=== PATIENT | male | born 1995 | race American Indian/Alaskan Native ===

== ENCOUNTER 2017-09-10 12:22 | Emergency (ER) | payer OTHER ==
[2017-09-10 12:56] VITALS: BP 153/88
--- NOTE | 2017-09-10 13:33 | XRay Report ---
RIGHT KNEE, 3 views: History: Right knee pain. The bony architecture is intact without evidence of fracture or dislocation. No significant soft tissue abnormality is seen. IMPRESSION: Normal right knee.
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
== END 2017-09-10 15:03 | disposition home or self-care (01) ==
LOC: ED 12:22
DX: M25.561 Pain in right knee (principal); J45.909 Unspecified asthma, uncomplicated; V43.52XA Car driver injured in collision with other type car in traffic accident, initial encounter; Y93.89 Activity, other specified; Y92.89 Other specified places as the place of occurrence of the external cause; Y99.8 Other external cause status
CPT/HCPCS: 99283

== ENCOUNTER 2018-12-20 19:02 | Emergency (ER) | payer OTHER ==
--- NOTE | 2018-12-20 20:44 | Emergency Department Report ---
Chief Complaint: Dental/Oral Stated Complaint: RT SIDE TOOTHACHE Time Seen by Provider: 12/20/18 20:42 - HPI History of Present Illness: This is a 23 y.o. male that presents to ER with toothache on the right lower side since this morning. - ROS Review of Systems: toothache - Exam Vital Signs: Vital Signs 12/20/18 20:42 Temperature 98.2 F Pulse Rate 90 Respiratory 18 Rate Blood Pressure 173/99 O2 Sat by Pulse 97 Oximetry MSE screening note: Focused history and physical exam performed. Due to findings the following was ordered: ED Disposition for MSE Condition: Stable
--- NOTE | 2018-12-21 00:10 | Emergency Department Report ---
ED ENT HPI - General Chief complaint: Dental/Oral Stated complaint: RT SIDE TOOTHACHE Time Seen by Provider: 12/20/18 20:42 Source: patient Mode of arrival: Ambulatory Limitations: No Limitations - History of Present Illness Initial comments: Pt presents to the ED with c/o right lower dental pain that began today. He denies any fever, N/V, facial swelling, or any other sx. He states he last saw a dentist approximately two months ago. The patient states he goes to [facility] in [place], [place]. The patient states the tooth that is causing him pain has a chronic crack present. - Related Data Previous Rx's Medication Instructions Recorded Last Taken Type Ibuprofen [Motrin 600 MG tab] 600 mg PO Q8H PRN #30 tablet 09/10/17 Unknown Rx Amoxicillin/K Clav Tab [Augmentin 1 tab PO BID 7 Days #14 tab 12/21/18 Unknown Rx 875 mg] traMADol [Ultram 50 MG tab] 50 mg PO Q6HR PRN #10 tablet 12/21/18 Unknown Rx Allergies Allergy/AdvReac Type Severity Reaction Status Date / Time No Known Allergies Allergy Verified 05/14/15 21:34 ED Dental HPI - General Chief complaint: Dental/Oral Stated complaint: RT SIDE TOOTHACHE Time Seen by Provider: 12/20/18 20:42 Source: patient Mode of arrival: Ambulatory Limitations: No Limitations - Related Data Previous Rx's Medication Instructions Recorded Last Taken Type Ibuprofen [Motrin 600 MG tab] 600 mg PO Q8H PRN #30 tablet 09/10/17 Unknown Rx Amoxicillin/K Clav Tab [Augmentin 1 tab PO BID 7 Days #14 tab 12/21/18 Unknown Rx 875 mg] traMADol [Ultram 50 MG tab] 50 mg PO Q6HR PRN #10 tablet 12/21/18 Unknown Rx Allergies Allergy/AdvReac Type Severity Reaction Status Date / Time No Known Allergies Allergy Verified 05/14/15 21:34 ED Review of Systems ROS: Stated complaint: RT SIDE TOOTHACHE Other details as noted in HPI Comment: All other systems reviewed and negative ED Past Medical Hx - Past Medical History Hx Asthma: Yes - Surgical History Past Surgical History?: No - Social History Smoking Status: Never Smoker Substance Use Type: None - Medications Home Medications: Home Medications Medication Instructions Recorded Confirmed Last Taken Type Ibuprofen [Motrin 600 MG tab] 600 mg PO Q8H PRN #30 tablet 09/10/17 Unknown Rx Amoxicillin/K Clav Tab [Augmentin 1 tab PO BID 7 Days #14 tab 12/21/18 Unknown Rx 875 mg] traMADol [Ultram 50 MG tab] 50 mg PO Q6HR PRN #10 tablet 12/21/18 Unknown Rx ED Physical Exam - General Limitations: No Limitations General appearance: alert, in no apparent distress - Head Head exam: Present: atraumatic, normocephalic - Eye Eye exam: Present: normal appearance - ENT ENT exam: Present: normal orophraynx, mucous membranes moist, other (right lower tooth with chip present does not appear to extend into the pulp, no obvious dental abscess, no facial swelling) ED Course Vital Signs 12/20/18 20:42 Temperature 98.2 F Pulse Rate 90 Respiratory 18 Rate Blood Pressure 173/99 O2 Sat by Pulse 97 Oximetry ED Medical Decision Making - Medical Decision Making Pt presents with right lower dental pain that began today. He denies any fever, facial swelling, N/V, or any other sx. Pt has a prior chip in the tooth that is causing pain. He states he has a dentist at [facility] in [place], [place]. Pt placed on antibiotics and given something for pain. Advised to see dentist [facility]. Return to the ED for any new or worsening symptoms. - Differential Diagnosis Dental caries, dental pain, dental chip, dental abscess Critical care attestation.: If time is entered above; I have spent that time in minutes in the direct care o f this critically ill patient, excluding procedure time. ED Disposition Clinical Impression: Pain due to dental caries Disposition: [id number] TO HOME OR SELFCARE Is pt being admited?: No Does the pt Need Aspirin: No Condition: Stable Instructions: Dental Caries (ED), Toothache (ED) Additional Instructions: Follow up with your dentist at [facility] in [place], [place] tomorrow (12/21/18). Take all medication as prescribed. Return to the emergency room for any new or worsening symptoms. Prescriptions: Amoxicillin/K Clav Tab [Augmentin 875 mg] 1 tab PO BID 7 Days #14 tab traMADol [Ultram 50 MG tab] 50 mg PO Q6HR PRN #10 tablet PRN Reason: Pain [facility] - [facility]-3 Days Forms: Work/School Release Form(ED) Time of Disposition: 00:08 Print Language: HEBREW
== END 2018-12-21 00:20 | disposition home or self-care (01) ==
LOC: ED 19:02
CPT/HCPCS: 99282

== ENCOUNTER 2021-08-21 18:28 | Inpatient (IN) | payer SELFPAY ==
[2021-08-21] MEDS ORDERED: ONDANSETRON 4 MG/2 ML INJ IV ONE (18:44)
[2021-08-21] MEDS ORDERED: SODIUM CHLORIDE 0.9% 1000 ML 1,000 ML IV ONE ×3 (18:44→19:33)
[2021-08-21] MEDS ORDERED: FAMOTIDINE 20 MG/2 ML INJ IV ONE (18:44)
[2021-08-21 19:07] LABS: Basophils # (Auto) 0.1 K/mm3 (0.0-0.1); Basophils % (Auto) 0.5 % (0.0-1.8); Eosinophils % (Auto) 0.1 % (0.0-4.3); Hematocrit 53.2 % (35.5-45.6); Hemoglobin 17.1 gm/dl (11.8-15.2); Lymphocytes # (Auto) 1.7 K/mm3 (1.2-5.4); Lymphocytes % (Auto) 14.4 % (13.4-35.0); Mean Corpuscular HGB Conc 32 % (32-34); Mean Corpuscular Volume 88 fl (84-94); Monocytes # (Auto) 0.7 K/mm3 (0.0-0.8); Monocytes % (Auto) 5.7 % (0.0-7.3); Platelet Count 518 K/mm3 (140-440); Red Blood Count 6.03 M/mm3 (3.65-5.03); Red Cell Distribution Width 12.8 % (13.2-15.2)
[2021-08-21 19:07] LABS: Bilirubin,Urine NEG (Negative); Blood,Urine SM (Negative); Color,Urine Straw (Yellow); Mucus,Urine FEW /HPF; Urobilinogen,Urine < 2.0 mg/dL (<2.0)
[2021-08-21 19:24] LABS: Alanine Aminotransferase 30 units/L (7-56); Albumin 4.9 g/dL (3.9-5); BUN/Creatinine Ratio 18; Blood Urea Nitrogen 23 mg/dL (9-20); Calcium 9.7 mg/dL (8.4-10.2); Hemolysis Index 23
[2021-08-21] MEDS ORDERED: DEXTROSE 50% IN WATER (25GM) 50 ML SYRINGE IV PRN ×2 (19:33→21:39)
--- NOTE | 2021-08-21 19:56 | Emergency Department Report ---
ED Abdominal Pain HPI - General Chief Complaint: Hyperglycemia Stated Complaint: HYPERGLYCEMIA Time Seen by Provider: 08/21/21 18:40 Source: patient, EMS Mode of arrival: Stretcher Limitations: No Limitations - History of Present Illness Initial Comments: Patient is a 25-year-old F Burmese male with no significant past medical history who is presenting with nausea vomiting hyperglycemia. Patient states he is has some nausea vomiting for the past 2 to 3 days. Patient states he has not felt well over the last week. Patient is just finished a full course of antibiotics for a left-sided tooth abscess. In the last week patient has had increased thirst urinary frequency but denies dysuria. Some crampy abdominal discomfort started couple days ago and again the patient is vomiting. No diarrhea cough cold congestion fevers or chills. Patient had Accu-Chek done prior to arrival which read high - Related Data Previous Rx's Medication Instructions Recorded Last Taken Type Ibuprofen [Motrin 600 MG tab] 600 mg PO Q8H PRN #30 tablet 09/10/17 Unknown Rx Amoxicillin/K Clav Tab [Augmentin 1 tab PO BID 7 Days #14 tab 12/21/18 Unknown Rx 875 mg] traMADoL [Ultram 50 MG tab] 50 mg PO Q6HR PRN #10 tablet 12/21/18 Unknown Rx Allergies Allergy/AdvReac Type Severity Reaction Status Date / Time avocado Allergy Hives Verified 08/21/21 18:42 ED Review of Systems ROS: Stated complaint: HYPERGLYCEMIA Other details as noted in HPI Comment: All other systems reviewed and negative ED Past Medical Hx - Past Medical History Previous Medical History?: No Hx Asthma: Yes - Surgical History Past Surgical History?: No - Family History Family history: diabetes - Social History Smoking Status: Unknown if ever smoked - Medications Home Medications: Home Medications Medication Instructions Recorded Confirmed Last Taken Type Ibuprofen [Motrin 600 MG tab] 600 mg PO Q8H PRN #30 tablet 09/10/17 Unknown Rx Amoxicillin/K Clav Tab [Augmentin 1 tab PO BID 7 Days #14 tab 12/21/18 Unknown Rx 875 mg] traMADoL [Ultram 50 MG tab] 50 mg PO Q6HR PRN #10 tablet 12/21/18 Unknown Rx ED Physical Exam - General Limitations: No Limitations General appearance: alert, in no apparent distress, other (dry mouth) - Head Head exam: Present: atraumatic, normocephalic - Eye Eye exam: Present: normal appearance - ENT ENT exam: Present: mucous membranes dry - Neck Neck exam: Present: normal inspection - Respiratory Respiratory exam: Present: normal lung sounds bilaterally. Absent: respiratory distress, wheezes, rales, rhonchi - Cardiovascular Cardiovascular Exam: Present: normal rhythm, tachycardia, normal heart sounds. Absent: systolic murmur, diastolic murmur, rubs, gallop - GI/Abdominal GI/Abdominal exam: Present: soft, normal bowel sounds. Absent: distended, tende rness, guarding, rebound - Rectal Rectal exam: Present: deferred - Extremities Exam Extremities exam: Present: normal inspection - Back Exam Back exam: Present: normal inspection - Neurological Exam Neurological exam: Present: alert, oriented X3 - Psychiatric Psychiatric exam: Present: normal affect, normal mood - Skin Skin exam: Present: warm, dry, intact, normal color. Absent: rash ED Course Vital Signs 08/21/21 08/21/21 08/21/21 18:41 19:15 19:25 Temperature 98.0 F 98.0 F Pulse Rate 112 H 126 H Respiratory 18 15 Rate Blood Pressure Blood Pressure 150/98 [Right] O2 Sat by Pulse 94 Oximetry 08/21/21 08/21/21 19:27 19:30 Temperature Pulse Rate 105 H Respiratory 18 Rate Blood Pressure 137/88 Blood Pressure [Right] O2 Sat by Pulse 100 96 Oximetry ED Medical Decision Making - Lab Data Result diagrams: 08/21/21 18:51 08/21/21 18:51 Lab Results 08/21/21 08/21/21 08/21/21 Range/Units 18:37 18:51 18:51 WBC 11.6 H (4.5-11.0) K/mm3 RBC 6.03 H (3.65-5.03) M/mm3 Hgb 17.1 H (11.8-15.2) gm/dl Hct 53.2 H (35.5-45.6) % MCV 88 (84-94) fl MCH 28 (28-32) pg MCHC 32 (32-34) % RDW 12.8 L (13.2-15.2) % Plt Count 518 H (140-440) K/mm3 Lymph % (Auto) 14.4 (13.4-35.0) % [place] % (Auto) 5.7 (0.0-7.3) % Eos % (Auto) 0.1 (0.0-4.3) % Baso % (Auto) 0.5 (0.0-1.8) % Lymph # (Auto) 1.7 (1.2-5.4) K/mm3 [place] # (Auto) 0.7 (0.0-0.8) K/mm3 Eos # (Auto) 0.0 (0.0-0.4) K/mm3 Baso # (Auto) 0.1 (0.0-0.1) K/mm3 Seg Neutrophils % 79.3 H (40.0-70.0) % Seg Neutrophils # 9.2 H (1.8-7.7) K/mm3 VBG pH (7.320-7.420) Sodium 127 L (137-145) mmol/L Potassium 4.7 (3.6-5.0) mmol/L Chloride 85.4 L (98-107) mmol/L Carbon Dioxide 10 L (22-30) mmol/L Anion Gap 36 mmol/L BUN 23 H (9-20) mg/dL Creatinine 1.3 (0.8-1.3) mg/dL Estimated GFR > 60 ml/min BUN/Creatinine Ratio 18 % Glucose 745 H* (75-100) mg/dL POC Glucose > 600 H (70-105) mg/dL Calcium 9.7 (8.4-10.2) mg/dL Phosphorus (2.5-4.5) mg/dL Magnesium (1.7-2.3) mg/dL Total Bilirubin 0.60 (0.1-1.2) mg/dL AST 14 (5-40) units/L ALT 30 (7-56) units/L Alkaline Phosphatase 164 H (35-129) units/L Total Protein 9.6 H (6.3-8.2) g/dL Albumin 4.9 (3.9-5) g/dL Albumin/Globulin Ratio 1.0 % Lipase 28 (13-60) units/L Urine Color (Yellow) Urine Turbidity (Clear) Urine pH (5.0-7.0) Ur Specific [place] (1.003-1.030) Urine Protein (Negative) mg/dL Urine Glucose (UA) (Negative) mg/dL Urine Ketones (Negative) mg/dL Urine Blood (Negative) Urine Nitrite (Negative) Urine Bilirubin (Negative) Urine Urobilinogen (<2.0) mg/dL Ur Leukocyte Esterase (Negative) Urine WBC (Auto) (0.0-6.0) /HPF Urine RBC (Auto) (0.0-6.0) /HPF Urine Mucus /HPF 08/21/21 08/21/21 08/21/21 Range/Units 18:51 18:51 Unknown WBC (4.5-11.0) K/mm3 RBC (3.65-5.03) M/mm3 Hgb (11.8-15.2) gm/dl Hct (35.5-45.6) % MCV (84-94) fl MCH (28-32) pg MCHC (32-34) % RDW (13.2-15.2) % Plt Count (140-440) K/mm3 Lymph % (Auto) (13.4-35.0) % [place] % (Auto) (0.0-7.3) % Eos % (Auto) (0.0-4.3) % Baso % (Auto) (0.0-1.8) % Lymph # (Auto) (1.2-5.4) K/mm3 [place] # (Auto) (0.0-0.8) K/mm3 Eos # (Auto) (0.0-0.4) K/mm3 Baso # (Auto) (0.0-0.1) K/mm3 Seg Neutrophils % (40.0-70.0) % Seg Neutrophils # (1.8-7.7) K/mm3 VBG pH 7.272 L (7.320-7.420) Sodium (137-145) mmol/L Potassium (3.6-5.0) mmol/L Chloride (98-107) mmol/L Carbon Dioxide (22-30) mmol/L Anion Gap mmol/L BUN (9-20) mg/dL Creatinine (0.8-1.3) mg/dL Estimated GFR ml/min BUN/Creatinine Ratio % Glucose (75-100) mg/dL POC Glucose (70-105) mg/dL Calcium (8.4-10.2) mg/dL Phosphorus 6.90 H (2.5-4.5) mg/dL Magnesium 2.70 H (1.7-2.3) mg/dL Total Bilirubin (0.1-1.2) mg/dL AST (5-40) units/L ALT (7-56) units/L Alkaline Phosphatase (35-129) units/L Total Protein (6.3-8.2) g/dL Albumin (3.9-5) g/dL Albumin/Globulin Ratio % Lipase (13-60) units/L Urine Color Straw (Yellow) Urine Turbidity Clear (Clear) Urine pH 5.0 (5.0-7.0) Ur Specific [place] 1.029 (1.003-1.030) Urine Protein 100 mg/dl (Negative) mg/dL Urine Glucose (UA) >=500 (Negative) mg/dL Urine Ketones 20 (Negative) mg/dL Urine Blood Sm (Negative) Urine Nitrite Neg (Negative) Urine Bilirubin Neg (Negative) Urine Urobilinogen < 2.0 (<2.0) mg/dL Ur Leukocyte Esterase Neg (Negative) Urine WBC (Auto) 1.0 (0.0-6.0) /HPF Urine RBC (Auto) 1.0 (0.0-6.0) /HPF Urine Mucus Few /HPF - Medical Decision Making Patient is a 25-year-old F Burmese male who is presenting with hyperglycemia and nausea vomiting. Patient is acidotic. Blood glucose greater than 700. Patient to be admitted to the ICU. Started on insulin drip. 3 L of fluid have been ordered will be initiated in the emergency department. Critical care attestation.: If time is entered above; I have spent that time in minutes in the direct care of this critically ill patient, excluding procedure time. ED Disposition Clinical Impression: Diabetic ketoacidosis, Diabetes mellitus, new onset, Dehydration Disposition: ADMITTED INPATIENT Is pt being admited?: Yes Does the pt Need Aspirin: No Condition: Stable Instructions: Diabetic Ketoacidosis (ED), Diabetes Mellitus Type 2 in Adults (ED) Time of Disposition: 19:56
[2021-08-21] MEDS ORDERED: D5W/0.45% NACL/KCL 20 MEQ 20 MEQ/1,000 ML BAG IV SCH (20:00)
[2021-08-21] MEDS: INSULIN REGULAR, HUMAN 100 UNITS in SODIUM CHLORIDE 0.9% 99 ML IV SCH (20:20)
[2021-08-21] MEDS ORDERED: ACETAMINOPHEN 325 MG TAB PO PRN (21:39)
[2021-08-21] MEDS ORDERED: HYDROmorphone 1 MG/1 ML INJ IV PRN (21:39)
[2021-08-21] MEDS ORDERED: MORPHINE 2 MG/1 ML INJ IV PRN (21:39)
[2021-08-21] MEDS ORDERED: ALBUTEROL 2.5 MG/3 ML NEBU IH PRN (21:39)
[2021-08-21] MEDS ORDERED: ONDANSETRON 4 MG/2 ML INJ IV PRN (21:39)
[2021-08-21] MEDS ORDERED: IBUPROFEN 600 MG TAB PO PRN (21:42)
--- NOTE | 2021-08-21 21:48 | History and Physical Report ---
History of Present Illness Date of examination: 08/21/21 Date of admission: 08/21/21 Chief complaint: Hyperglycemia History of present illness: 25-year-old F Haitian male with no significant past medical history who is presenting with nausea vomiting hyperglycemia. Patient states he is has some nausea vomiting for the past 2 to 3 days. Patient states he has not felt well over the last week. Patient is just finished a full course of antibiotics for a left-sided tooth abscess. In the last week patient has had increased thirst urinary frequency but denies dysuria. Some crampy abdominal discomfort started couple days ago and again the patient is vomiting. No diarrhea cough cold congestion fevers or chills. Patient had Accu-Chek done prior to arrival which read high In the emergency room patient is found to have DKA. Patient is acidotic. Blood glucose greater than 700. Patient to be admitted to the ICU. Started on insulin drip. 3 L of fluid have been ordered will be initiated in the emergency department. Med rec is done Past History Past Medical History: diabetes Medications and Allergies Allergies Allergy/AdvReac Type Severity Reaction Status Date / Time avocado Allergy Hives Verified 08/21/21 18:42 Home Medications Medication Instructions Recorded Confirmed Last Taken Type Ibuprofen [Motrin 600 MG tab] 600 mg PO Q8H PRN #30 tablet 09/10/17 Unknown Rx Amoxicillin/K Clav Tab [Augmentin 1 tab PO BID 7 Days #14 tab 12/21/18 Unknown Rx 875 mg] traMADoL [Ultram 50 MG tab] 50 mg PO Q6HR PRN #10 tablet 12/21/18 Unknown Rx Active Meds: Active Medications Acetaminophen (Acetaminophen 325 Mg Tab) 650 mg PO Q4H PRN PRN Reason: Pain MILD(1-3)/Fever >100.5/BILLINGS Albuterol (Albuterol 2.5 Mg/3 Ml Nebu) 2.5 mg IH Q4HRT PRN PRN Reason: Shortness Of Breath Albuterol/Ipratropium (Ipratropium/Albuterol Sulfate 3 Ml Ampul.Neb) 1 ampul IH Q6HRT GIULIANA Amoxicillin/Clavulanate Potassium (Amoxicillin/K Clav 875/125mg Tab) 1 each PO BID GIULIANA; Protocol Dextrose (Dextrose 50% In Water (25gm) 50 Ml Syringe) 0 ml IV Q30MIN PRN; Protocol PRN Reason: Hypoglycemia Dextrose (Dextrose 50% In Water (25gm) 50 Ml Syringe) 0 ml IV Q30MIN PRN; Protocol PRN Reason: Hypoglycemia Famotidine (Famotidine 20 Mg/2 Ml Inj) 20 mg IV BID GIULIANA Hydromorphone HCl (Hydromorphone 1 Mg/1 Ml Inj) 0.5 mg IV Q3H PRN PRN Reason: Pain , Severe (7-10) Insulin Human Regular 100 (units/ Sodium Chloride) 100 mls @ 1 mls/hr IV TITR GIULIANA; Protocol Last Admin: 08/21/21 20:20 Dose: 8 units/hr, 8 mls/hr Documented by: Potassium Chloride/Dextrose/Sod Cl (D5w/0.45% Nacl/Kcl 20 Meq) 20 meq in 1,000 mls @ 125 mls/hr IV DIRECT GIULIANA Insulin Human Regular 100 (units/ Sodium Chloride) 100 mls @ 1 mls/hr IV TITR GIULIANA; Protocol Sodium Chloride (Nacl 0.45% 1000 Ml) 1,000 mls @ 150 mls/hr IV DIRECT GIULIANA Ibuprofen (Ibuprofen 600 Mg Tab) 600 mg PO Q8H PRN PRN Reason: PAIN Morphine Sulfate (Morphine 2 Mg/1 Ml Inj) 2 mg IV Q4H PRN PRN Reason: Pain, Moderate (4-6) Ondansetron HCl (Ondansetron 4 Mg/2 Ml Inj) 4 mg IV Q8H PRN PRN Reason: Nausea And Vomiting Sodium Chloride (Sodium Chloride 0.9% 10 Ml Flush Syringe) 10 ml IV BID GIULIANA Sodium Chloride (Sodium Chloride 0.9% 10 Ml Flush Syringe) 10 ml IV PRN PRN PRN Reason: LINE FLUSH Review of Systems All systems: negative Gastrointestinal: abdominal pain, nausea, vomiting Endocrine: polyuria Exam - Constitutional Vitals: Temp Pulse Resp BP Pulse Ox 98.0 F 105 H 18 137/88 96 08/21/21 19:25 08/21/21 19:30 08/21/21 19:30 08/21/21 19:30 08/21/21 19:30 General appearance: Present: no acute distress, well-nourished - EENT Eyes: Present: PERRL ENT: hearing intact, clear oral mucosa - Neck Neck: Present: supple, normal ROM - Respiratory Respiratory effort: normal Respiratory: bilateral: CTA - Cardiovascular Heart Sounds: Present: S1 & S2. Absent: rub, click - Extremities Extremities: pulses symmetrical, No edema Peripheral Pulses: within normal limits - Abdominal General gastrointestinal: Present: soft, non-tender, non-distended, normal bowel sounds Male genitourinary: Present: normal - Integumentary Integumentary: Present: clear, warm, dry - Musculoskeletal Musculoskeletal: gait normal, strength equal bilaterally - Psychiatric Psychiatric: appropriate mood/affect, intact judgment & insight - Neurologic Neurologic: CNII-XII intact, moves all extremities Results - Labs CBC & Chem 7: 08/21/21 18:51 08/21/21 18:51 Labs: Laboratory Last Values WBC 11.6 K/mm3 (4.5-11.0) H 08/21/21 18:51 RBC 6.03 M/mm3 (3.65-5.03) H 08/21/21 18:51 Hgb 17.1 gm/dl (11.8-15.2) H 08/21/21 18:51 Hct 53.2 % (35.5-45.6) H 08/21/21 18:51 MCV 88 fl (84-94) 08/21/21 18:51 MCH 28 pg (28-32) 08/21/21 18:51 MCHC 32 % (32-34) 08/21/21 18:51 RDW 12.8 % (13.2-15.2) L 08/21/21 18:51 Plt Count 518 K/mm3 (140-440) H 08/21/21 18:51 Lymph % (Auto) 14.4 % (13.4-35.0) 08/21/21 18:51 [place] % (Auto) 5.7 % (0.0-7.3) 08/21/21 18:51 Eos % (Auto) 0.1 % (0.0-4.3) 08/21/21 18:51 Baso % (Auto) 0.5 % (0.0-1.8) 08/21/21 18:51 Lymph # (Auto) 1.7 K/mm3 (1.2-5.4) 08/21/21 18:51 [place] # (Auto) 0.7 K/mm3 (0.0-0.8) 08/21/21 18:51 Eos # (Auto) 0.0 K/mm3 (0.0-0.4) 08/21/21 18:51 Baso # (Auto) 0.1 K/mm3 (0.0-0.1) 08/21/21 18:51 Seg Neutrophils % 79.3 % (40.0-70.0) H 08/21/21 18:51 Seg Neutrophils # 9.2 K/mm3 (1.8-7.7) H 08/21/21 18:51 VBG pH 7.272 (7.320-7.420) L 08/21/21 18:51 Sodium 127 mmol/L (137-145) L 08/21/21 18:51 Potassium 4.7 mmol/L (3.6-5.0) 08/21/21 18:51 Chloride 85.4 mmol/L (98-107) L 08/21/21 18:51 Carbon Dioxide 10 mmol/L (22-30) L 08/21/21 18:51 Anion Gap 36 mmol/L 08/21/21 18:51 BUN 23 mg/dL (9-20) H 08/21/21 18:51 Creatinine 1.3 mg/dL (0.8-1.3) 08/21/21 18:51 Estimated GFR > 60 ml/min 08/21/21 18:51 BUN/Creatinine Ratio 18 % 08/21/21 18:51 Glucose 745 mg/dL (75-100) H* 08/21/21 18:51 POC Glucose > 600 mg/dL (70-105) H 08/21/21 18:37 Calcium 9.7 mg/dL (8.4-10.2) 08/21/21 18:51 Phosphorus 6.90 mg/dL (2.5-4.5) H 08/21/21 18:51 Magnesium 2.70 mg/dL (1.7-2.3) H 08/21/21 18:51 Total Bilirubin 0.60 mg/dL (0.1-1.2) 08/21/21 18:51 AST 14 units/L (5-40) 08/21/21 18:51 ALT 30 units/L (7-56) 08/21/21 18:51 Alkaline Phosphatase 164 units/L (35-129) H 08/21/21 18:51 Total Protein 9.6 g/dL (6.3-8.2) H 08/21/21 18:51 Albumin 4.9 g/dL (3.9-5) 08/21/21 18:51 Albumin/Globulin Ratio 1.0 % 08/21/21 18:51 Lipase 28 units/L (13-60) 08/21/21 18:51 Urine Color Straw (Yellow) 08/21/21 Unknown Urine Turbidity Clear (Clear) 08/21/21 Unknown Urine pH 5.0 (5.0-7.0) 08/21/21 Unknown Ur Specific [place] 1.029 (1.003-1.030) 08/21/21 Unknown Urine Protein 100 mg/dl mg/dL (Negative) 08/21/21 Unknown Urine Glucose (UA) >=500 mg/dL (Negative) 08/21/21 Unknown Urine Ketones 20 mg/dL (Negative) 08/21/21 Unknown Urine Blood Sm (Negative) 08/21/21 Unknown Urine Nitrite Neg (Negative) 08/21/21 Unknown Urine Bilirubin Neg (Negative) 08/21/21 Unknown Urine Urobilinogen < 2.0 mg/dL (<2.0) 08/21/21 Unknown Ur Leukocyte Esterase Neg (Negative) 08/21/21 Unknown Urine WBC (Auto) 1.0 /HPF (0.0-6.0) 08/21/21 Unknown Urine RBC (Auto) 1.0 /HPF (0.0-6.0) 08/21/21 Unknown Urine Mucus Few /HPF 08/21/21 Unknown Assessment and Plan VTE prophylaxis?: Mechanical Plan of care discussed with patient/family: Yes - Patient Problems (1) Diabetic ketoacidosis Current Visit: Yes Status: Acute Plan to address problem: Admit the patient to the ICU. NPO. half-normal saline at the rate of 150 cc/h. Insulin drip as per protocol. Serial BMP. Recheck CBC BMP in the morning . Diabetic education (2) Dehydration Current Visit: Yes Status: Acute Plan to address problem: Half-normal saline at the rate of 150 cc/h. We rehydrate the patient's slowly. Recheck BMP in the morning (3) Diabetes mellitus, new onset Current Visit: Yes Status: Acute Plan to address problem: We will put the patient on insulin drip as per DKA protocol we will do the serial BMP. Diabetic education (4) DVT prophylaxis Current Visit: Yes Status: Acute Plan to address problem: SCD for DVT prophylaxis. Pepcid 20 mg IV every 12 hours for GI prophylaxis. Patient is a full code
[2021-08-21] MEDS ORDERED: INSULIN REGULAR, HUMAN 100 UNITS in SODIUM CHLORIDE 0.9% 99 ML IV SCH (22:00)
[2021-08-21] MEDS ORDERED: SODIUM CHLORIDE 0.45% 1000 ML 1,000 ML IV SCH (22:00)
[2021-08-21 22:37] LABS: BUN/Creatinine Ratio 20; Blood Urea Nitrogen 24 mg/dL (9-20); Calcium 9.1 mg/dL (8.4-10.2); Hemolysis Index 22
[2021-08-21] MEDS: AMOXICILLIN/K CLAV 875/125MG TAB PO SCH (22:41)
[2021-08-21] MEDS: FAMOTIDINE 20 MG/2 ML INJ IV SCH (22:41)
[2021-08-22 00:40] LABS: BUN/Creatinine Ratio 19; Blood Urea Nitrogen 21 mg/dL (9-20); Calcium 9.2 mg/dL (8.4-10.2); Hemolysis Index 14
[2021-08-22] MEDS ORDERED: SODIUM CHLORIDE 0.45% 1000 ML IV SOLN IV SCH (01:00)
[2021-08-22] MEDS: INSULIN REGULAR, HUMAN 100 UNITS in SODIUM CHLORIDE 0.9% 99 ML IV SCH ×2 (02:58→15:17)
[2021-08-22 05:13] LABS: Basophils # (Auto) 0.1 K/mm3 (0.0-0.1); Basophils % (Auto) 0.7 % (0.0-1.8); Eosinophils % (Auto) 0.2 % (0.0-4.3); Hematocrit 49.1 % (35.5-45.6); Hemoglobin 16.4 gm/dl (11.8-15.2); Lymphocytes # (Auto) 2.4 K/mm3 (1.2-5.4); Lymphocytes % (Auto) 22.3 % (13.4-35.0); Mean Corpuscular HGB Conc 33 % (32-34); Mean Corpuscular Volume 86 fl (84-94); Monocytes # (Auto) 1.1 K/mm3 (0.0-0.8); Monocytes % (Auto) 10.7 % (0.0-7.3); Platelet Count 435 K/mm3 (140-440); Red Blood Count 5.72 M/mm3 (3.65-5.03); Red Cell Distribution Width 12.9 % (13.2-15.2)
[2021-08-22 05:30] LABS: BUN/Creatinine Ratio 20; Blood Urea Nitrogen 18 mg/dL (9-20); Calcium 8.9 mg/dL (8.4-10.2); Hemolysis Index 15
[2021-08-22] MEDS ORDERED: LACTATED RINGERS 1,000 ML IV ONE (08:00)
[2021-08-22] MEDS: IPRATROPIUM/ALBUTEROL SULFATE 3 ML AMPUL.NEB IH SCH ×2 (08:31)
[2021-08-22] MEDS: AMOXICILLIN/K CLAV 875/125MG TAB PO SCH ×2 (10:26→10:34)
[2021-08-22] MEDS: FAMOTIDINE 20 MG/2 ML INJ IV SCH (10:27)
[2021-08-22] MEDS ORDERED: hydrALAZINE 20 MG/1 ML INJ IV PRN (12:30)
--- NOTE | 2021-08-22 14:55 | Progress Note ---
<DOUG MCINTOSH - Last Filed: 08/22/21 16:00> Assessment and Plan Assessment and plan: This is a 25-year-old male admitted with DKA Neuro: NAD -Avoid delirium -Maintain sleep-wake cycle -Mutation as needed CV: ? HTN -Patient is having elevated blood pressure readings but denies history of hypertension -As needed hydralazine -Blood Pressure monitoring per protocol Respiratory: NAD -Supplemental oxygen as needed -SPO2 monitoring-pulmonary hygiene GI: MO -Encouraged lifestyle and dietary modifications upon discharge -PPI -24 hours -286 ml -BR: Senna : Pseudohyponatremia, metabolic acidosis (resolved), hypomagnesemia, hypophosphatemia -Monitor intake and output -Voiding into urinal -Trend BMP -Intervene as needed Endo: DKA, h/o DM -Presented with polydipsia, polyuria, nausea, vomiting and hypoglycemia -Admit labs were consistent with DKA -S/p DKA protocol, insulin drip -Transition to SSI -Transition to long-acting insulin, titrate as needed -Hemoglobin A1c pending -Nutrition consult for diabetic education -We will need glucometer and testing supplies upon discharge -We will need to follow-up with primary care physician upon discharge ID: COVID-19 PUI, leukocytosis (resolved), h/o tooth abscess -Patient states that he is not vaccinated for COVID-19 -COVID-19 PCR negative -Patient completed antibiotic course for tooth abscess 2 weeks prior to admit -Presented with leukocytosis which may be reactive very -Monitor fever and WBC curve Heme: Hemoconcentration -Trend CBC -Hemoconcentration likely related to dehydration -Transfuse for hemoglobin less than 7 -Lovenox subcu -SCDs to bilateral lower extremity while in bed The high probability of a clinically significant, sudden or life threatening deterioration of the [endo] system(s) required my full and direct attention, intervention and personal management. The aggregate critical care time was [60] minutes. This time is in addition to time spent performing reported procedures but includes the following: [x] Data Review and interpretation [x] Patient assessment and monitoring of vital signs [x] Documentation [x] Medication orders and management Disposition Plan: possible transfer to floor Total Time Spent with Patient (Minutes): 60 History Interval history: This is a 25-year-old male with no medical history who presents to the emergency department with nausea, vomiting, polydipsia, and polyuria for the past 2-3 days and abdominal discomfort and recently finished a course of antibiotics for left-sided tooth abscess. Patient stated that he had done blood glucose level prior to presentation which read high. Work-up in the emergency department revealed hyperglycemia and high anion gap metabolic acidosis. Patient was admit erin to the hospitalist service with consults to [facility] on DKA pathway. 08/22: COVID-19 PCR sent today, antibiotics discontinued, patient remains on insulin drip and awaiting PM BMP. Hospitalist Physical - Constitutional Vitals: Temp Pulse Resp BP Pulse Ox 98.9 F 95 H 15 153/93 95 08/22/21 12:00 08/22/21 14:11 08/22/21 14:11 08/22/21 14:11 08/22/21 14:11 General appearance: Present: no acute distress, well-nourished - EENT Eyes: Present: PERRL, EOM intact ENT: hearing intact, clear oral mucosa, dentition normal - Neck Neck: Present: supple, normal ROM - Respiratory Respiratory effort: normal Respiratory: bilateral: diminished - Cardiovascular Rhythm: regular Heart Sounds: Present: S1 & S2. Absent: systolic murmur, diastolic murmur - Extremities Extremities: no ischemia, pulses intact, pulses symmetrical, No edema, normal temperature, normal color, Full ROM Peripheral Pulses: within normal limits - Abdominal General gastrointestinal: soft, non-tender, non-distended, normal bowel sounds - Integumentary Integumentary: Present: warm, dry - Psychiatric Psychiatric: cooperative - Neurologic Neurologic: CNII-XII intact, no focal deficits, moves all extremities - Allied Health Allied health notes reviewed: nursing, RT, social work Results - Labs CBC & Chem 7: 08/22/21 04:39 08/22/21 14:19 Labs: Laboratory Last Values WBC 10.7 K/mm3 (4.5-11.0) 08/22/21 04:39 RBC 5.72 M/mm3 (3.65-5.03) H 08/22/21 04:39 Hgb 16.4 gm/dl (11.8-15.2) H 08/22/21 04:39 Hct 49.1 % (35.5-45.6) H 08/22/21 04:39 MCV 86 fl (84-94) 08/22/21 04:39 MCH 29 pg (28-32) 08/22/21 04:39 MCHC 33 % (32-34) 08/22/21 04:39 RDW 12.9 % (13.2-15.2) L 08/22/21 04:39 Plt Count 435 K/mm3 (140-440) 08/22/21 04:39 Lymph % (Auto) 22.3 % (13.4-35.0) 08/22/21 04:39 [place] % (Auto) 10.7 % (0.0-7.3) H 08/22/21 04:39 Eos % (Auto) 0.2 % (0.0-4.3) 08/22/21 04:39 Baso % (Auto) 0.7 % (0.0-1.8) 08/22/21 04:39 Lymph # (Auto) 2.4 K/mm3 (1.2-5.4) 08/22/21 04:39 [place] # (Auto) 1.1 K/mm3 (0.0-0.8) H 08/22/21 04:39 Eos # (Auto) 0.0 K/mm3 (0.0-0.4) 08/22/21 04:39 Baso # (Auto) 0.1 K/mm3 (0.0-0.1) 08/22/21 04:39 Seg Neutrophils % 66.1 % (40.0-70.0) 08/22/21 04:39 Seg Neutrophils # 7.1 K/mm3 (1.8-7.7) 08/22/21 04:39 VBG pH 7.272 (7.320-7.420) L 08/21/21 18:51 Sodium 140 mmol/L (137-145) 08/22/21 04:39 Potassium 4.5 mmol/L (3.6-5.0) 08/22/21 04:39 Chloride 104.0 mmol/L (98-107) 08/22/21 04:39 Carbon Dioxide 13 mmol/L (22-30) L 08/22/21 04:39 Anion Gap 28 mmol/L 08/22/21 04:39 BUN 18 mg/dL (9-20) 08/22/21 04:39 Creatinine 0.9 mg/dL (0.8-1.3) 08/22/21 04:39 Estimated GFR > 60 ml/min 08/22/21 04:39 BUN/Creatinine Ratio 20 % 08/22/21 04:39 Glucose 315 mg/dL (75-100) H 08/22/21 04:39 POC Glucose 235 mg/dL (70-105) H 08/22/21 14:08 Calcium 8.9 mg/dL (8.4-10.2) 08/22/21 04:39 Phosphorus 4.80 mg/dL (2.5-4.5) H D 08/21/21 21:50 Magnesium 2.70 mg/dL (1.7-2.3) H 08/21/21 21:50 Total Bilirubin 0.60 mg/dL (0.1-1.2) 08/21/21 18:51 AST 14 units/L (5-40) 08/21/21 18:51 ALT 30 units/L (7-56) 08/21/21 18:51 Alkaline Phosphatase 164 units/L (35-129) H 08/21/21 18:51 Total Protein 9.6 g/dL (6.3-8.2) H 08/21/21 18:51 Albumin 4.9 g/dL (3.9-5) 08/21/21 18:51 Albumin/Globulin Ratio 1.0 % 08/21/21 18:51 Lipase 28 units/L (13-60) 08/21/21 18:51 Urine Color Straw (Yellow) 08/21/21 Unknown Urine Turbidity Clear (Clear) 08/21/21 Unknown Urine pH 5.0 (5.0-7.0) 08/21/21 Unknown Ur Specific [place] 1.029 (1.003-1.030) 08/21/21 Unknown Urine Protein 100 mg/dl mg/dL (Negative) 08/21/21 Unknown Urine Glucose (UA) >=500 mg/dL (Negative) 08/21/21 Unknown Urine Ketones 20 mg/dL (Negative) 08/21/21 Unknown Urine Blood Sm (Negative) 08/21/21 Unknown Urine Nitrite Neg (Negative) 08/21/21 Unknown Urine Bilirubin Neg (Negative) 08/21/21 Unknown Urine Urobilinogen < 2.0 mg/dL (<2.0) 08/21/21 Unknown Ur Leukocyte Esterase Neg (Negative) 08/21/21 Unknown Urine WBC (Auto) 1.0 /HPF (0.0-6.0) 08/21/21 Unknown Urine RBC (Auto) 1.0 /HPF (0.0-6.0) 08/21/21 Unknown Urine Mucus Few /HPF 08/21/21 Unknown Tao/IV: Voiding Method Urinal Active Medications - Current Medications Current Medications: Generic Name Dose Route Start Last Admin Trade Name Freq PRN Reason Stop Dose Admin Acetaminophen 650 mg 08/21/21 21:39 Acetaminophen 325 Mg Tab PO Q4H PRN Pain MILD(1-3)/Fever >100.5/BILLINGS Albuterol 2.5 mg 08/21/21 21:39 Albuterol 2.5 Mg/3 Ml Nebu IH Q4HRT PRN Shortness Of Breath Dextrose 0 ml 08/21/21 21:39 Dextrose 50% In Water (25gm) 50 Ml Syringe IV Q30MIN PRN Hypoglycemia Protocol Famotidine 20 mg 08/21/21 22:00 08/22/21 10:27 Famotidine 20 Mg/2 Ml Inj IV 20 mg BID GIULIANA Administration Hydralazine HCl 10 mg 08/22/21 12:30 Hydralazine 20 Mg/1 Ml Inj IV Q4H PRN Hypertension Hydromorphone HCl 0.5 mg 08/21/21 21:39 Hydromorphone 1 Mg/1 Ml Inj IV Q3H PRN Pain , Severe (7-10) Insulin Human Regular 100 100 mls @ 1 mls/hr 08/21/21 20:00 08/22/21 14:12 units/ Sodium Chloride IV Infused TITR GIULIANA Titration Protocol 1 UNITS/HR Potassium Chloride/Dextrose/Sod Cl 20 meq in 1,000 mls @ 125 mls/hr 08/21/21 20:00 08/22/21 12:13 D5w/0.45% Nacl/Kcl 20 Meq IV 125 mls/hr DIRECT GIULIANA Infusion Sodium Chloride 1,000 mls @ 125 mls/hr 08/21/21 22:00 08/22/21 12:13 Nacl 0.45% 1000 Ml IV Infused DIRECT GIULIANA Infusion Ibuprofen 600 mg 08/21/21 21:42 Ibuprofen 600 Mg Tab PO Q8H PRN Pain, Mild (1-3) Morphine Sulfate 2 mg 08/21/21 21:39 Morphine 2 Mg/1 Ml Inj IV Q4H PRN Pain, Moderate (4-6) Ondansetron HCl 4 mg 08/21/21 21:39 Ondansetron 4 Mg/2 Ml Inj IV Q8H PRN Nausea And Vomiting Sodium Chloride 10 ml 08/21/21 22:00 08/22/21 10:27 Sodium Chloride 0.9% 10 Ml Flush Syringe IV 10 ml BID GIULIANA Administration Sodium Chloride 10 ml 08/21/21 21:39 Sodium Chloride 0.9% 10 Ml Flush Syringe IV PRN PRN LINE FLUSH <KIRSTEN JIMÉNEZ - Last Filed: 08/23/21 07:20> Assessment and Plan Assessment and plan: I saw and evaluated the patient. Discussed with the nurse practitioner and agree with their findings and plan as documented in this note. Hospitalist Physical - Constitutional Vitals: Temp Pulse Resp BP Pulse Ox 98.7 F 83 18 141/88 98 08/23/21 04:34 08/23/21 04:34 08/23/21 04:34 08/23/21 04:34 08/23/21 04:34 Results - Labs CBC & Chem 7: 08/23/21 04:51 08/23/21 04:51 Labs: Laboratory Last Values WBC 8.6 K/mm3 (4.5-11.0) 08/23/21 04:51 RBC 4.94 M/mm3 (3.65-5.03) 08/23/21 04:51 Hgb 14.0 gm/dl (11.8-15.2) 08/23/21 04:51 Hct 42.8 % (35.5-45.6) D 08/23/21 04:51 MCV 87 fl (84-94) 08/23/21 04:51 MCH 29 pg (28-32) 08/23/21 04:51 MCHC 33 % (32-34) 08/23/21 04:51 RDW 13.0 % (13.2-15.2) L 08/23/21 04:51 Plt Count 316 K/mm3 (140-440) 08/23/21 04:51 Lymph % (Auto) 22.3 % (13.4-35.0) 08/22/21 04:39 [place] % (Auto) 10.7 % (0.0-7.3) H 08/22/21 04:39 Eos % (Auto) 0.2 % (0.0-4.3) 08/22/21 04:39 Baso % (Auto) 0.7 % (0.0-1.8) 08/22/21 04:39 Lymph # (Auto) 2.4 K/mm3 (1.2-5.4) 08/22/21 04:39 [place] # (Auto) 1.1 K/mm3 (0.0-0.8) H 08/22/21 04:39 Eos # (Auto) 0.0 K/mm3 (0.0-0.4) 08/22/21 04:39 Baso # (Auto) 0.1 K/mm3 (0.0-0.1) 08/22/21 04:39 Seg Neutrophils % 66.1 % (40.0-70.0) 08/22/21 04:39 Seg Neutrophils # 7.1 K/mm3 (1.8-7.7) 08/22/21 04:39 VBG pH 7.272 (7.320-7.420) L 08/21/21 18:51 Sodium 138 mmol/L (137-145) 08/23/21 04:51 Potassium 3.7 mmol/L (3.6-5.0) 08/23/21 04:51 Chloride 101.1 mmol/L (98-107) 08/23/21 04:51 Carbon Dioxide 18 mmol/L (22-30) L 08/23/21 04:51 Anion Gap 23 mmol/L 08/23/21 04:51 BUN 14 mg/dL (9-20) 08/23/21 04:51 Creatinine 0.8 mg/dL (0.8-1.3) 08/23/21 04:51 Estimated GFR > 60 ml/min 08/23/21 04:51 BUN/Creatinine Ratio 18 % 08/23/21 04:51 Glucose 349 mg/dL (75-100) H 08/23/21 04:51 POC Glucose 351 mg/dL (70-105) H 08/23/21 05:49 Hemoglobin A1c 11.4 % (4-6) H 08/22/21 15:03 Calcium 9.0 mg/dL (8.4-10.2) 08/23/21 04:51 Phosphorus 3.20 mg/dL (2.5-4.5) D 08/23/21 04:51 Magnesium 2.00 mg/dL (1.7-2.3) 08/23/21 04:51 Total Bilirubin 0.60 mg/dL (0.1-1.2) 08/21/21 18:51 AST 14 units/L (5-40) 08/21/21 18:51 ALT 30 units/L (7-56) 08/21/21 18:51 Alkaline Phosphatase 164 units/L (35-129) H 08/21/21 18:51 Total Protein 9.6 g/dL (6.3-8.2) H 08/21/21 18:51 Albumin 4.9 g/dL (3.9-5) 08/21/21 18:51 Albumin/Globulin Ratio 1.0 % 08/21/21 18:51 Triglycerides 716 mg/dL (2-149) H 08/23/21 04:51 Cholesterol 206 mg/dL (50-199) H 08/23/21 04:51 LDL Cholesterol Direct TNR 08/23/21 04:51 HDL Cholesterol 21 mg/dL (40-59) L 08/23/21 04:51 Cholesterol/HDL Ratio 9.80 % 08/23/21 04:51 Lipase 28 units/L (13-60) 08/21/21 18:51 Urine Color Straw (Yellow) 08/21/21 Unknown Urine Turbidity Clear (Clear) 08/21/21 Unknown Urine pH 5.0 (5.0-7.0) 08/21/21 Unknown Ur Specific [place] 1.029 (1.003-1.030) 08/21/21 Unknown Urine Protein 100 mg/dl mg/dL (Negative) 08/21/21 Unknown Urine Glucose (UA) >=500 mg/dL (Negative) 08/21/21 Unknown Urine Ketones 20 mg/dL (Negative) 08/21/21 Unknown Urine Blood Sm (Negative) 08/21/21 Unknown Urine Nitrite Neg (Negative) 08/21/21 Unknown Urine Bilirubin Neg (Negative) 08/21/21 Unknown Urine Urobilinogen < 2.0 mg/dL (<2.0) 08/21/21 Unknown Ur Leukocyte Esterase Neg (Negative) 08/21/21 Unknown Urine WBC (Auto) 1.0 /HPF (0.0-6.0) 08/21/21 Unknown Urine RBC (Auto) 1.0 /HPF (0.0-6.0) 08/21/21 Unknown Urine Mucus Few /HPF 08/21/21 Unknown Coronavirus (PCR) Negative (Negative) 08/22/21 Unknown Tao/IV: Voiding Method Urinal Active Medications - Current Medications Current Medications: Generic Name Dose Route Start Last Admin Trade Name Freq PRN Reason Stop Dose Admin Acetaminophen 650 mg 08/21/21 21:39 Acetaminophen 325 Mg Tab PO Q4H PRN Pain MILD(1-3)/Fever >100.5/BILLINGS Albuterol 2.5 mg 08/21/21 21:39 Albuterol 2.5 Mg/3 Ml Nebu IH Q4HRT PRN Shortness Of Breath Dextrose 50 ml 08/22/21 16:00 Dextrose 50% In Water (25gm) 50 Ml Syringe IV Q30MIN PRN Hypoglycemia Protocol Enoxaparin Sodium 80 mg 08/22/21 17:00 08/22/21 16:48 Enoxaparin 80 Mg/0.8 Ml Inj SUB-Q 80 mg QDAY GIULIANA Administration Protocol Famotidine 40 mg 08/22/21 22:00 08/22/21 21:06 Famotidine 20 Mg Tab PO 40 mg QHS GIULIANA Administration Hydralazine HCl 10 mg 08/22/21 12:30 Hydralazine 20 Mg/1 Ml Inj IV Q4H PRN Hypertension Insulin Glargine 25 units 08/23/21 08:00 Insulin Glargine 100 Units/Ml SUB-Q QAMDIAB GIULIANA Insulin Human Regular 0 units 08/22/21 21:00 08/23/21 06:01 Insulin Regular, Human 100 Units/1 Ml SUB-Q 10 units Q4HR GIULIANA Administration Protocol Ondansetron HCl 4 mg 08/21/21 21:39 Ondansetron 4 Mg/2 Ml Inj IV Q8H PRN Nausea And Vomiting Oxycodone HCl 5 mg 08/22/21 16:30 Oxycodone 5 Mg Tab PO Q8H PRN Pain, Moderate (4-6) Sen[place] 17.2 mg 08/22/21 22:00 08/22/21 21:06 Sennosides 8.6 Mg Tab PO Not Given QHS GIULIANA Sodium Chloride 10 ml 08/21/21 22:00 08/22/21 21:06 Sodium Chloride 0.9% 10 Ml Flush Syringe IV 10 ml BID GIULIANA Administration Sodium Chloride 10 ml 08/21/21 21:39 Sodium Chloride 0.9% 10 Ml Flush Syringe IV PRN PRN LINE FLUSH Nutrition/Malnutrition Assess - Dietary Evaluation Nutrition/Malnutrition Findings: Nutrition Notes Start: 08/22/21 15:25 Freq: Status: Active Protocol: Document 08/22/21 15:25 [facility] (Rec: 08/22/21 15:33 NHALL [id number]) Nutrition Notes Need for Assessment generated from: MD Order,paleologist,MST Initial or Follow up Assessment Current Diagnosis Diabetes Other Pertinent Diagnosis DKA, Dehydration, new onset DM , r/o COVID-19 Current Diet NPO Labs/Tests A1C ordered Pertinent Medications Insulin gtt Height 6 ft 1 in Weight 141.9 kg [place] Body Weight (kg) 83.63 BMI 41.3 Weight Status Morbidly Obese Subjective/Other Information RD consulted for diet education and NTR recommendations; pt also screened for malnutrition risk and new onset of DM. Pt admitted with S/S of hyperglycemia. Burn Absent Trauma Absent GI Symptoms Nausea,Vomiting Skin Integrity/Comment Jon score: 17 Minimum of two criteria No #1 Nutrition Diagnosis Inadequate oral intake Etiology new onset DM, insulin drip As Evidenced by Signs and Symptoms pt NPO Is patient on ventilator? No Is Patient Ambulatory and/or Out of Bed Yes REE-([facility]-ambulatory/OOB) [ 3195.244 NUTR.MSJOOB] Kcal/Kg value to use for calculation 16 Approximate Energy Requirements Using 2270 kcal/Kg Calculation Used for Recommendations Kcal/kg Additional Notes Pro needs up to 2.5g/kg IBW: up to 209g/day Fluid needs 1ml/kcal Nutrition Intervention Change Diet Order: Advance diet to Consistent CHO when medically feasible Goal #1 Diet advancement to meet nutrient needs Anticipated Discharge Needs: CHO-controlled diet Follow-Up By: 08/25/21 Additional Comments F/U: new DM diet education, MST assessment
[2021-08-22 14:59] LABS: BUN/Creatinine Ratio 16; Blood Urea Nitrogen 14 mg/dL (9-20); Calcium 9.2 mg/dL (8.4-10.2); Hemolysis Index 15
[2021-08-22] MEDS ORDERED: DEXTROSE 50% IN WATER (25GM) 50 ML SYRINGE IV PRN (16:00)
[2021-08-22] MEDS ORDERED: INSULIN LISPRO 100 UNIT/ML SUB-Q SCH (16:30)
[2021-08-22] MEDS ORDERED: oxyCODONE 5 MG TAB PO PRN (16:30)
[2021-08-22] MEDS: ENOXAPARIN 80 MG/0.8 ML INJ SUB-Q SCH (16:48)
[2021-08-22] MEDS ORDERED: INSULIN GLARGINE 100 UNITS/ML SUB-Q ONE (20:15)
[2021-08-22] MEDS: INSULIN REGULAR, HUMAN 100 UNITS/1 ML SUB-Q SCH (20:36)
[2021-08-22] MEDS: FAMOTIDINE 20 MG TAB PO SCH (21:06)
[2021-08-22] MEDS: SENNOSIDES 8.6 MG TAB PO SCH (21:06)
[2021-08-23] MEDS: INSULIN REGULAR, HUMAN 100 UNITS/1 ML SUB-Q SCH ×10 (02:10→23:01)
[2021-08-23 05:47] LABS: Hematocrit 42.8 % (35.5-45.6); Mean Corpuscular HGB Conc 33 % (32-34); Mean Corpuscular Volume 87 fl (84-94); Platelet Count 316 K/mm3 (140-440); Red Blood Count 4.94 M/mm3 (3.65-5.03)
[2021-08-23 06:06] LABS: BUN/Creatinine Ratio 18; Blood Urea Nitrogen 14 mg/dL (9-20); Hemolysis Index 5
[2021-08-23 06:11] LABS: HDL Cholesterol 21 mg/dL (40-59); LDL Cholesterol,Direct TNR mg/dL (50-130)
[2021-08-23] MEDS ORDERED: INSULIN REGULAR, HUMAN 100 UNITS/1 ML SUB-Q SCH (08:00)
[2021-08-23] MEDS ORDERED: INSULIN GLARGINE 100 UNITS/ML SUB-Q SCH (09:30)
[2021-08-23] MEDS: INSULIN GLARGINE 100 UNITS/ML SUB-Q SCH ×2 (09:53→09:57)
[2021-08-23] MEDS: ENOXAPARIN 80 MG/0.8 ML INJ SUB-Q SCH (09:59)
[2021-08-23 10:50] LABS: BUN/Creatinine Ratio 18; Blood Urea Nitrogen 14 mg/dL (9-20); Calcium 9.1 mg/dL (8.4-10.2); Hemolysis Index 14
--- NOTE | 2021-08-23 12:34 | Progress Note ---
Assessment and Plan Assessment and plan: History of Presenting Illness This is a 25-year-old male with no medical history who presents to the emergency department with nausea, vomiting, polydipsia, and polyuria for the past 2-3 days and abdominal discomfort and recently finished a course of antibiotics for left-sided tooth abscess. Patient stated that he had done blood glucose level prior to presentation which read high. Work-up in the emergency department revealed hyperglycemia and high anion gap metabolic acidosis. Patient was admitted to the hospitalist service with consults to [facility] on DKA pathway. Interval history: 08/22: COVID-19 PCR sent today, antibiotics discontinued, patient remains on insulin drip and awaiting PM BMP. 08/23: GAP remains open, blood sugars elevated in 300's still. Ordered repeat BMP at noon with no improvement. Added scheduled regular insulin 5 units sub q4hr. Ordered one time dose of insulin 15 units. Lantus increased to 35 units qhs. Anticipate discharge in next 24 hrs. Assessment and plan: This is a 25-year-old male admitted with DKA Neuro: NAD -Avoid delirium -Maintain sleep-wake cycle -Mutation as needed CV: ? HTN -Patient is having elevated blood pressure readings but denies history of hypertension -As needed hydralazine -Blood Pressure monitoring per protocol Respiratory: NAD -Supplemental oxygen as needed -SPO2 monitoring-pulmonary hygiene GI: MO -Encouraged lifestyle and dietary modifications upon discharge -PPI -24 hours -286 ml -BR: Senna : Pseudohyponatremia, metabolic acidosis (resolved), hypomagnesemia, hypophosphatemia -Monitor intake and output -Voiding into urinal -Trend BMP -Intervene as needed Endo: DKA, h/o DM -Presented with polydipsia, polyuria, nausea, vomiting and hypoglycemia -Admit labs were consistent with DKA -S/p DKA protocol, insulin drip -Transition to SSI -Transition to long-acting insulin, titrate as needed -Hemoglobin A1c pending -Nutrition consult for diabetic education -We will need glucometer and testing supplies upon discharge -We will need to follow-up with primary care physician upon discharge ID: COVID-19 PUI, leukocytosis (resolved), h/o tooth abscess -Patient states that he is not vaccinated for COVID-19 -COVID-19 PCR negative -Patient completed antibiotic course for tooth abscess 2 weeks prior to admit -Presented with leukocytosis which may be reactive very -Monitor fever and WBC curve Heme: Hemoconcentration -Trend CBC -Hemoconcentration likely related to dehydration -Transfuse for hemoglobin less than 7 -Lovenox subcu -SCDs to bilateral lower extremity while in bed #Diabetes counseling and dietary + exercise counseling administered +15 minutes #Advance care planning Disease education conducted, care plan discussed, diagnoses discussed, prognosis discussed, patient is full code, patient acknowledges understanding and agree with care plan, +30 minutes. History Interval history: Resting comfortably on encounter. Diabetic/dietary education as well as weight loss education administered. Hospitalist Physical - Physical exam Narrative exam: Physical Exam: VITAL SIGNS: Reviewed. GENERAL: The patient appears normally developed, Vital signs as documented. Elevated BMI >40. HEAD: No signs of head trauma. EYES: Pupils are equal. Extraocular motions intact. EARS: Hearing grossly intact. MOUTH: Oropharynx is normal. NECK: No adenopathy, no JVD. CHEST: Chest with clear breath sounds bilaterally. No wheezes, rales, or rhonchi. CARDIAC: Regular rate and rhythm. S1 and S2, without murmurs, gallops, or rubs. VASCULAR: No Edema. Peripheral pulses normal and equal in all extremities. ABDOMEN: Soft, non tender and non distended. No rebound or guarding, and no masses palpated. Bowel Sounds normal. MUSCULOSKELETAL: Good range of motion of all major joints. Extremities without clubbing, cyanosis or edema. NEUROLOGIC EXAM: Alert and oriented x 4. no focal sensory or strength deficits. PSYCHIATRIC: Mood normal. SKIN: detail exam as documented in skin assessment - Constitutional Vitals: Temp Pulse Resp BP Pulse Ox 98.7 F 83 18 141/88 98 08/23/21 04:34 08/23/21 04:34 08/23/21 04:34 08/23/21 04:34 08/23/21 04:34 General appearance: Present: no acute distress, well-nourished Results - Labs CBC & Chem 7: 08/23/21 04:51 08/23/21 10:10 Labs: Laboratory Last Values WBC 8.6 K/mm3 (4.5-11.0) 08/23/21 04:51 RBC 4.94 M/mm3 (3.65-5.03) 08/23/21 04:51 Hgb 14.0 gm/dl (11.8-15.2) 08/23/21 04:51 Hct 42.8 % (35.5-45.6) D 08/23/21 04:51 MCV 87 fl (84-94) 08/23/21 04:51 MCH 29 pg (28-32) 08/23/21 04:51 MCHC 33 % (32-34) 08/23/21 04:51 RDW 13.0 % (13.2-15.2) L 08/23/21 04:51 Plt Count 316 K/mm3 (140-440) 08/23/21 04:51 Lymph % (Auto) 22.3 % (13.4-35.0) 08/22/21 04:39 [place] % (Auto) 10.7 % (0.0-7.3) H 08/22/21 04:39 Eos % (Auto) 0.2 % (0.0-4.3) 08/22/21 04:39 Baso % (Auto) 0.7 % (0.0-1.8) 08/22/21 04:39 Lymph # (Auto) 2.4 K/mm3 (1.2-5.4) 08/22/21 04:39 [place] # (Auto) 1.1 K/mm3 (0.0-0.8) H 08/22/21 04:39 Eos # (Auto) 0.0 K/mm3 (0.0-0.4) 08/22/21 04:39 Baso # (Auto) 0.1 K/mm3 (0.0-0.1) 08/22/21 04:39 Seg Neutrophils % 66.1 % (40.0-70.0) 08/22/21 04:39 Seg Neutrophils # 7.1 K/mm3 (1.8-7.7) 08/22/21 04:39 VBG pH 7.272 (7.320-7.420) L 08/21/21 18:51 Sodium 134 mmol/L (137-145) L 08/23/21 10:10 Potassium 3.9 mmol/L (3.6-5.0) 08/23/21 10:10 Chloride 97.5 mmol/L (98-107) L 08/23/21 10:10 Carbon Dioxide 19 mmol/L (22-30) L 08/23/21 10:10 Anion Gap 21 mmol/L 08/23/21 10:10 BUN 14 mg/dL (9-20) 08/23/21 10:10 Creatinine 0.8 mg/dL (0.8-1.3) 08/23/21 10:10 Estimated GFR > 60 ml/min 08/23/21 10:10 BUN/Creatinine Ratio 18 % 08/23/21 10:10 Glucose 383 mg/dL (75-100) H 08/23/21 10:10 POC Glucose 330 mg/dL (70-105) H 08/23/21 11:08 Hemoglobin A1c 11.4 % (4-6) H 08/22/21 15:03 Calcium 9.1 mg/dL (8.4-10.2) 08/23/21 10:10 Phosphorus 3.20 mg/dL (2.5-4.5) D 08/23/21 04:51 Magnesium 2.00 mg/dL (1.7-2.3) 08/23/21 04:51 Total Bilirubin 0.60 mg/dL (0.1-1.2) 08/21/21 18:51 AST 14 units/L (5-40) 08/21/21 18:51 ALT 30 units/L (7-56) 08/21/21 18:51 Alkaline Phosphatase 164 units/L (35-129) H 08/21/21 18:51 Total Protein 9.6 g/dL (6.3-8.2) H 08/21/21 18:51 Albumin 4.9 g/dL (3.9-5) 08/21/21 18:51 Albumin/Globulin Ratio 1.0 % 08/21/21 18:51 Triglycerides 716 mg/dL (2-149) H 08/23/21 04:51 Cholesterol 206 mg/dL (50-199) H 08/23/21 04:51 LDL Cholesterol Direct TNR 08/23/21 04:51 HDL Cholesterol 21 mg/dL (40-59) L 08/23/21 04:51 Cholesterol/HDL Ratio 9.80 % 08/23/21 04:51 Lipase 28 units/L (13-60) 08/21/21 18:51 Urine Color Straw (Yellow) 08/21/21 Unknown Urine Turbidity Clear (Clear) 08/21/21 Unknown Urine pH 5.0 (5.0-7.0) 08/21/21 Unknown Ur Specific [place] 1.029 (1.003-1.030) 08/21/21 Unknown Urine Protein 100 mg/dl mg/dL (Negative) 08/21/21 Unknown Urine Glucose (UA) >=500 mg/dL (Negative) 08/21/21 Unknown Urine Ketones 20 mg/dL (Negative) 08/21/21 Unknown Urine Blood Sm (Negative) 08/21/21 Unknown Urine Nitrite Neg (Negative) 08/21/21 Unknown Urine Bilirubin Neg (Negative) 08/21/21 Unknown Urine Urobilinogen < 2.0 mg/dL (<2.0) 08/21/21 Unknown Ur Leukocyte Esterase Neg (Negative) 08/21/21 Unknown Urine WBC (Auto) 1.0 /HPF (0.0-6.0) 08/21/21 Unknown Urine RBC (Auto) 1.0 /HPF (0.0-6.0) 08/21/21 Unknown Urine Mucus Few /HPF 08/21/21 Unknown Coronavirus (PCR) Negative (Negative) 08/22/21 Unknown Tao/IV: Voiding Method Urinal Active Medications - Current Medications Current Medications: Generic Name Dose Route Start Last Admin Trade Name Freq PRN Reason Stop Dose Admin Acetaminophen 650 mg 08/21/21 21:39 Acetaminophen 325 Mg Tab PO Q4H PRN Pain MILD(1-3)/Fever >100.5/BILLINGS Albuterol 2.5 mg 08/21/21 21:39 Albuterol 2.5 Mg/3 Ml Nebu IH Q4HRT PRN Shortness Of Breath Dextrose 50 ml 08/22/21 16:00 Dextrose 50% In Water (25gm) 50 Ml Syringe IV Q30MIN PRN Hypoglycemia Protocol Enoxaparin Sodium 80 mg 08/22/21 17:00 08/23/21 09:59 Enoxaparin 80 Mg/0.8 Ml Inj SUB-Q 80 mg QDAY GIULIANA Administration Protocol Famotidine 40 mg 08/22/21 22:00 08/22/21 21:06 Famotidine 20 Mg Tab PO 40 mg QHS GIULIANA Administration Hydralazine HCl 10 mg 08/22/21 12:30 Hydralazine 20 Mg/1 Ml Inj IV Q4H PRN Hypertension Insulin Glargine 35 units 08/23/21 09:30 08/23/21 11:33 Insulin Glargine 100 Units/Ml SUB-Q 35 units QAMDIAB GIULIANA Administration Insulin Human Regular 0 units 08/22/21 21:00 08/23/21 09:59 Insulin Regular, Human 100 Units/1 Ml SUB-Q 8 units Q4HR GIULIANA Administration Protocol Insulin Human Regular 5 units 08/23/21 10:00 08/23/21 10:00 Insulin Regular, Human 100 Units/1 Ml SUB-Q 5 units Q4HR GIULIANA Administration Ondansetron HCl 4 mg 08/21/21 21:39 Ondansetron 4 Mg/2 Ml Inj IV Q8H PRN Nausea And Vomiting Oxycodone HCl 5 mg 08/22/21 16:30 Oxycodone 5 Mg Tab PO Q8H PRN Pain, Moderate (4-6) Senna 17.2 mg 08/22/21 22:00 08/22/21 21:06 Sennosides 8.6 Mg Tab PO Not Given QHS GIULIANA Sodium Chloride 10 ml 08/21/21 22:00 08/23/21 10:01 Sodium Chloride 0.9% 10 Ml Flush Syringe IV 10 ml BID GIULIANA Administration Sodium Chloride 10 ml 08/21/21 21:39 Sodium Chloride 0.9% 10 Ml Flush Syringe IV PRN PRN LINE FLUSH Nutrition/Malnutrition Assess - Dietary Evaluation Nutrition/Malnutrition Findings: Nutrition Notes Start: 08/22/21 15:25 Freq: Status: Active Protocol: Document 08/22/21 15:25 TOMAS (Rec: 08/22/21 15:33 TOMAS [email or web address]) Nutrition Notes Need for Assessment generated from: MD Order,audit associate,MST Initial or Follow up Assessment Current Diagnosis Diabetes Other Pertinent Diagnosis DKA, Dehydration, new onset DM , r/o COVID-19 Current Diet NPO Labs/Tests A1C ordered Pertinent Medications Insulin gtt Height 6 ft 1 in Weight 141.9 kg [place] Body Weight (kg) 83.63 BMI 41.3 Weight Status Morbidly Obese Subjective/Other Information RD consulted for diet education and NTR recommendations; pt also screened for malnutrition risk and new onset of DM. Pt admitted with S/S of hyperglycemia. Burn Absent Trauma Absent GI Symptoms Nausea,Vomiting Skin Integrity/Comment Jon score: 17 Minimum of two criteria No #1 Nutrition Diagnosis Inadequate oral intake Etiology new onset DM, insulin drip As Evidenced by Signs and Symptoms pt NPO Is patient on ventilator? No Is Patient Ambulatory and/or Out of Bed Yes REE-([facility]-ambulatory/OOB) [ 3195.244 [id number]] Kcal/Kg value to use for calculation 16 Approximate Energy Requirements Using 2270 kcal/Kg Calculation Used for Recommendations Kcal/kg Additional Notes Pro needs up to 2.5g/kg IBW: up to 209g/day Fluid needs 1ml/kcal Nutrition Intervention Change Diet Order: Advance diet to Consistent CHO when medically feasible Goal #1 Diet advancement to meet nutrient needs Anticipated Discharge Needs: CHO-controlled diet Follow-Up By: 08/25/21 Additional Comments F/U: new DM diet education, MST assessment
[2021-08-23] MEDS ORDERED: INSULIN REGULAR, HUMAN 100 UNITS/1 ML SUB-Q ONE (13:00)
[2021-08-23] MEDS: FAMOTIDINE 20 MG TAB PO SCH (22:59)
[2021-08-23] MEDS: SENNOSIDES 8.6 MG TAB PO SCH (22:59)
[2021-08-24] MEDS: INSULIN REGULAR, HUMAN 100 UNITS/1 ML SUB-Q SCH ×8 (02:20→15:42)
[2021-08-24 05:21] LABS: BUN/Creatinine Ratio 22; Blood Urea Nitrogen 13 mg/dL (9-20); Calcium 8.7 mg/dL (8.4-10.2); Hemolysis Index 32
[2021-08-24] MEDS: POTASSIUM CHLORIDE ER 20 MEQ TAB PO SCH ×2 (06:03→11:00)
[2021-08-24] MEDS ORDERED: INSULIN GLARGINE 100 UNITS/ML SUB-Q SCH (07:55)
[2021-08-24] MEDS: ENOXAPARIN 80 MG/0.8 ML INJ SUB-Q SCH (11:00)
[2021-08-24] MEDS ORDERED: INSULIN REGULAR, HUMAN 100 UNITS/1 ML SUB-Q ONE (11:48)
[2021-08-24] MEDS ORDERED: LISINOPRIL 20 MG TAB PO SCH (12:00)
--- NOTE | 2021-08-24 12:08 | Discharge Summary ---
Providers - Providers Date of Admission: 08/21/21 21:30 Date of discharge: 08/24/21 Attending physician: KIRSTEN JIMÉNEZ MD 08/22/21 15:59 Consult to Dietitian/Nutrition [CONS] Routine Physician Instructions: Reason For Exam: Reason for Consult: Diet education Primary care physician: [employer] Hospitalization Reason for admission: nausea Condition: Stable Hospital course: History of Presenting Illness This is a 25-year-old male with no medical history who presents to the emergency department with nausea, vomiting, polydipsia, and polyuria for the past 2-3 days and abdominal discomfort and recently finished a course of antibiotics for left-sided tooth abscess. Patient stated that he had done blood glucose level prior to presentation which read high. Work-up in the emergency department revealed hyperglycemia and high anion gap metabolic acidosis. Patient was admitted to the hospitalist service with consults to [facility] on DKA pathway. Interval history: 08/22: COVID-19 PCR sent today, antibiotics discontinued, patient remains on insulin drip and awaiting PM BMP. 08/23: GAP remains open, blood sugars elevated in 300's still. Ordered repeat BMP at noon with no improvement. Added scheduled regular insulin 5 units sub q4hr. Ordered one time dose of insulin 15 units. Lantus increased to 35 units qhs. Anticipate discharge in next 24 hrs. 08/24: This AM BG in 300's and K 2.9. K replaced with oral Kdur 40 MEq x 2. Long acting and short acting insulins increased. Repeat BMP pending. If pt more controlled, can be discharge home. He is asymptomatic. He was advised to follow up with an biochemical development engineer at [place] or [facility]. He will be discharged home on Novolin 70/30 35 unit subq bid, metformin 1000 mg po bid for his diabetes, lisinopril 20 mg po daily for his elevated blood pressure, and K-Dur 20 MEQ x 3 day rx. Assessment and plan: This is a 25-year-old male admitted with DKA Neuro: NAD -Avoid delirium -Maintain sleep-wake cycle -Mutation as needed CV: ? HTN -Patient is having elevated blood pressure readings but denies history of hypertension -As needed hydralazine -Blood Pressure monitoring per protocol Respiratory: NAD -Supplemental oxygen as needed -SPO2 monitoring-pulmonary hygiene GI: MO -Encouraged lifestyle and dietary modifications upon discharge -PPI -24 hours -286 ml -BR: Senna : Pseudohyponatremia, metabolic acidosis (resolved), hypomagnesemia, hypophosphatemia -Monitor intake and output -Voiding into urinal -Trend BMP -Intervene as needed Endo: DKA, h/o DM -Presented with polydipsia, polyuria, nausea, vomiting and hypoglycemia -Admit labs were consistent with DKA -S/p DKA protocol, insulin drip -Transition to SSI -Transition to long-acting insulin, titrate as needed -Hemoglobin A1c pending -Nutrition consult for diabetic education -We will need glucometer and testing supplies upon discharge -We will need to follow-up with primary care physician upon discharge ID: COVID-19 PUI, leukocytosis (resolved), h/o tooth abscess -Patient states that he is not vaccinated for COVID-19 -COVID-19 PCR negative -Patient completed antibiotic course for tooth abscess 2 weeks prior to admit -Presented with leukocytosis which may be reactive very -Monitor fever and WBC curve Heme: Hemoconcentration -Trend CBC -Hemoconcentration likely related to dehydration -Transfuse for hemoglobin less than 7 -Lovenox subcu -SCDs to bilateral lower extremity while in bed #Diabetes counseling and dietary + exercise counseling administered +15 minutes #Advance care planning Disease education conducted, care plan discussed, diagnoses discussed, prognosis discussed, patient is full code, patient acknowledges understanding and agree with care plan, +30 minutes. Disposition: HOME / SELF CARE / HOMELESS Final Discharge Diagnosis (Prints w/discharge instructions): diabetic ketoacidosis Time spent for discharge: 35 - Discharge Diagnoses (1) Hypertension Status: Acute (2) Morbid obesity with BMI of 40.0-44.9, adult Status: Acute (3) DVT prophylaxis Status: Acute (4) Dehydration Status: Acute (5) Diabetes mellitus, new onset Status: Acute (6) Diabetic ketoacidosis Status: Acute Core Measure Documentation - Palliative Care Palliative Care/ Comfort Measures: Not Applicable - Core Measures Any of the following diagnoses?: none Exam - Physical Exam Narrative exam: Physical Exam: VITAL SIGNS: Reviewed. GENERAL: The patient appears normally developed, Vital signs as documented. Elevated BMI >40. HEAD: No signs of head trauma. EYES: Pupils are equal. Extraocular motions intact. EARS: Hearing grossly intact. MOUTH: Oropharynx is normal. NECK: No adenopathy, no JVD. CHEST: Chest with clear breath sounds bilaterally. No wheezes, rales, or rhonchi. CARDIAC: Regular rate and rhythm. S1 and S2, without murmurs, gallops, or rubs. VASCULAR: No Edema. Peripheral pulses normal and equal in all extremities. ABDOMEN: Soft, non tender and non distended. No rebound or guarding, and no masses palpated. Bowel Sounds normal. MUSCULOSKELETAL: Good range of motion of all major joints. Extremities without clubbing, cyanosis or edema. NEUROLOGIC EXAM: Alert and oriented x 4. no focal sensory or strength deficits. PSYCHIATRIC: Mood normal. SKIN: detail exam as documented in skin assessment - Constitutional Vitals: Temp Pulse Resp BP Pulse Ox 98.6 F 92 H 18 146/76 95 08/24/21 05:34 08/24/21 05:34 08/24/21 10:00 08/24/21 05:34 08/24/21 10:00 Plan Follow up with: PRIMARY CARE, [Primary Care Provider] - 7 Days Prescriptions: Potassium Chloride [K-Dur] 20 meq PO QDAY 3 Days #3 tablet Metformin HCl [metFORMIN] 1,000 mg PO BID 30 Days #60 tablet Insulin NPH Hum/Reg Insulin Hm [Novolin 70-30 100 Unit/ml Vial] 35 unit SQ BID 30 Days #3 vial lisinopriL [Zestril TAB] 20 mg PO QDAY 30 Days #30 tablet
[2021-08-24 12:57] LABS: BUN/Creatinine Ratio 18; Blood Urea Nitrogen 14 mg/dL (9-20); Hemolysis Index 17
[2021-08-24 17:53] VITALS: BP 139/82
== END 2021-08-24 18:40 | disposition home or self-care (01) | DRG 638 ==
LOC: ED 18:28 → CC1 21:30 → 3A 08-23 01:29
PROVIDERS: ADMIT Hospitalist; ATTEND Internal Medicine
DX: E11.10 Type 2 diabetes mellitus with ketoacidosis without coma (principal); E87.1 Hypo-osmolality and hyponatremia; Z68.41 Body mass index [BMI] 40.0-44.9, adult; E86.0 Dehydration; E83.42 Hypomagnesemia; Z20.822 Contact with and (suspected) exposure to COVID-19; D72.829 Elevated white blood cell count, unspecified; E66.01 Morbid (severe) obesity due to excess calories
CPT/HCPCS: 36415; 80048; 80053; 80061; 81001; 82805; 82962; 83036; 83690; 83735; 84100; 85025; 85027; 94640; G0378; J3480; J3490; Q0162; Q9967; J1650; J1815; J2405; J7030; J7120; U0003